=== PATIENT | male | born 1945 | race Caucasian/White ===

== ENCOUNTER → 2018-06-14 | Outpatient (REF) | payer MEDICARE, OTHER ==
[2018-06-14 18:04] LABS: BASO # 0.1 10^3/uL (0.0-0.2); BASO % 0.4 % (0.0-1.0); EOS # 0.1 10^3/uL (0.0-0.50); EOS % 0.9 % (0.0-3.0); HEMATOCRIT 36.3 % (42.0-52.0); HEMOGLOBIN 11.7 g/dl (13.5-17.5); IMMATURE GRANULOCYTE % 3.1 % (0-3.0); LYMPH # 1.4 10^3/uL (1.5-4.5); LYMPH % 8.4 % (24.0-44.0); MEAN CORPUSCULAR HGB CONC 32.2 g/dl (32.0-36.5); MEAN CORPUSCULAR VOLUME 83.8 fl (80.0-96.0); MONO # 0.9 10^3/uL (0.0-0.8); MONO % 5.7 % (0.0-5.0); NEUTROPHILS # 13.2 10^3/uL (1.8-7.7); NEUTROPHILS % 81.5 % (36.0-66.0); PLATELET COUNT, AUTOMATED 582 10^3/uL (150-450); RED BLOOD COUNT 4.33 10^6/uL (4.30-6.10); RED CELL DISTRIBUTION WIDTH 14.5 % (11.5-14.5); WHITE BLOOD COUNT 16.1 10^3/uL (4.0-10.0)
[2018-06-14 18:24] LABS: ALBUMIN 2.4 GM/DL (3.2-5.2); ALBUMIN/GLOBULIN RATIO 0.53 (1.00-1.93); ALKALINE PHOSPHATASE 85 U/L (45-117); ALT/SGPT 26 U/L (12-78); ANION GAP 10 MEQ/L (8-16); AST/SGOT 13 U/L (7-37); BILIRUBIN,TOTAL 0.2 MG/DL (0.2-1.0); BLOOD UREA NITROGEN 11 MG/DL (7-18); CALCIUM LEVEL 8.5 MG/DL (8.8-10.2); CARBON DIOXIDE LEVEL 29 MEQ/L (21-32); CHLORIDE LEVEL 100 MEQ/L (98-107); CREATININE FOR GFR 0.92 MG/DL (0.70-1.30); GLOMERULAR FILTRATION RATE > 60.0 (>42); GLUCOSE, FASTING 108 MG/DL (70-100); LDH LACTATE DEHYDROGENASE 142 U/L (87-241); POTASSIUM SERUM 4.6 MEQ/L (3.5-5.1); SODIUM LEVEL 139 MEQ/L (136-145); TOTAL PROTEIN 6.9 GM/DL (6.4-8.2)
[2018-06-14 18:33] LABS: INR 1.08; PROTHROMBIN TIME 14.1 SECONDS (12.1-14.4)
[2018-06-14 18:34] LABS: PARTIAL THROMBOPLASTIN TIME 28.2 SECONDS (25.4-37.6)
== END ==
LOC: M LAB REF 17:26
DX: J90 Pleural effusion, not elsewhere classified (principal)
CPT/HCPCS: 83615

== ENCOUNTER 2018-06-16 12:32 | Day surgery (SDC) | payer MEDICARE, OTHER ==
[2018-06-16] MEDS ORDERED: LIDOCAINE 1% MDV 20ML VIAL As Ordered (14:01)
[2018-06-16 14:58] LABS: PH BODY FLUID 7.119 UNITS (NOT ESTABLISHED); SOURCE, BODY FLUID pH THORACENTES
[2018-06-16 15:15] LABS: APPEARANCE, BODY FLUID HAZY (CLEAR); PLEURAL FL COLOR RED (COLORLESS); SOURCE, BODY FLUID PLEURAL
[2018-06-16 15:16] LABS: BF DIFF IF INDICATED? YES (NO); BF MONONUCLEAR CELL % 6.9 % (0-0); BF POLYMORPHONUCLEAR CELL % 93.1 % (0-0); RBC BODY FLUID 50 10^3/uL (<2); WBC BODY FLUID 2950 /uL (0-10)
[2018-06-16 15:55] LABS: LDH, BODY FLUID 2598 U/L (NOT ESTABLISHED); SOURCE, BODY FLUID LDH THORACENTESIS; SOURCE, BODY FLUID TOT PROTEIN THORACENTESIS; TOTAL PROTEIN, BODY FLUID 4.9 G/DL (NOT ESTABLISHED)
[2018-06-16 18:34] LABS: SOURCE, BODY FLUID GLUCOSE THORACENTESIS
== END 2018-06-16 15:21 | disposition home or self-care (01) ==
LOC: M OPP 12:32
DX: J90 Pleural effusion, not elsewhere classified (principal); J18.9 Pneumonia, unspecified organism; I10 Essential (primary) hypertension; J44.9 Chronic obstructive pulmonary disease, unspecified; Z86.69 Personal history of other diseases of the nervous system and sense organs; Z79.899 Other long term (current) drug therapy; Z79.84 Long term (current) use of oral hypoglycemic drugs; Z87.891 Personal history of nicotine dependence
CPT/HCPCS: 32555

== ENCOUNTER 2020-04-25 12:07 | Day surgery (SDC) | payer MEDICARE, OTHER ==
[~2020-04-25] VITALS: Ht 177.8 cm; Wt 85.9 kg
[~2020-04-25 12:07] MED LIST: ADV250INH INH; ALBU83IN INH; ASPI81TA52 PO; B-12100010 PO; BENA40TA5 PO; DOXA8TAB2 PO; FERR32TA PO; FLOM0.4C39 PO; GLIP5TAB20 PO; JANU100T PO; METF10004 PO; MUCI600T31 PO; MULT1TAB10 PO; PANT40TA29 PO; RANI150T PO; SIMV40TA20 PO; VITA100067 PO; ZETI10TA16 PO
[2020-04-25] MEDS ORDERED: NS 1,000 ML IV ONE (12:15)
[2020-04-25] MEDS ORDERED: propofoL 200 MG/20 ML VIAL As Ordered ONE (12:44)
[2020-04-25 13:21] VITALS: BP 127/72
--- NOTE | 2020-05-16 11:29 | ROOR ---
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 Procedure: Pre-Anesthesia Assessment: - The heart rate, respiratory rate, oxygen saturations, blood pressure, adequacy of pulmonary ventilation, and response to care were monitored throughout the procedure. The Colonoscope was introduced through the anus and advanced to the cecum, identified by appendiceal orifice and ileocecal valve. The colonoscopy was performed without difficulty. The patient tolerated the procedure well. The quality of the bowel preparation was excellent. Findings: The perianal and digital rectal examinations were normal. Non-bleeding internal hemorrhoids were found during retroflexion. The hemorrhoids were small and Grade I (internal hemorrhoids that do not prolapse). Scattered small-mouthed diverticula were found in the recto-sigmoid colon, sigmoid colon and descending colon. A small polyp was found at 20 cm proximal to the anus. The polyp was sessile. The polyp was removed with a cold snare. Resection and retrieval were complete. To prevent bleeding after the polypectomy, three hemostatic clips were successfully placed (MR conditional). There was no bleeding at the end of the procedure. The exam was otherwise without abnormality on direct and retroflexion views. Impression: - Non-bleeding internal hemorrhoids. - Diverticulosis in the recto-sigmoid colon, in the sigmoid colon and in the descending colon. - One small polyp at 20 cm proximal to the anus, removed with a cold snare. Resected and retrieved. Clips (MR conditional) were placed. - The examination was otherwise normal on direct and retroflexion views. - The exam was otherwise normal to the cecum. Recommendation: - Patient has a contact number available for emergencies. The signs and symptoms of potential delayed complications were discussed with the patient. Return to normal activities tomorrow. Written discharge instructions were provided to the patient. - High fiber diet. - Discharge patient to home. - Continue present medications. - Await pathology results. - Telephone GI clinic for pathology results in 1 week. - Repeat colonoscopy for symptoms only. - Return to referring physician. - The findings and recommendations were discussed with the patient. Mehran Mayes MD Mehran Mayes MD 04/25/2020 12:52:39 PM Electronically signed by Mehran Mayes MD Number of Addenda: 0 Note Initiated On: 04/25/2020 11:07 AM Estimated Blood Loss: Estimated blood loss: none.
== END 2020-04-25 13:23 | disposition home or self-care (01) ==
LOC: M OPP 12:07
PROVIDERS: ATTEND Internal Medicine Gastroenterology
DX: Z12.11 Encounter for screening for malignant neoplasm of colon (principal); K64.0 First degree hemorrhoids; D12.6 Benign neoplasm of colon, unspecified; K57.30 Diverticulosis of large intestine without perforation or abscess without bleeding; K21.9 Gastro-esophageal reflux disease without esophagitis; E11.9 Type 2 diabetes mellitus without complications; I10 Essential (primary) hypertension; Z79.82 Long term (current) use of aspirin; Z79.84 Long term (current) use of oral hypoglycemic drugs; Z79.899 Other long term (current) drug therapy; Z87.891 Personal history of nicotine dependence

== ENCOUNTER → 2023-05-13 | Outpatient (CLI) | payer MEDICARE, OTHER ==
[~2023-05-13] MED LIST changes: +ALBU2.5V10 INH; -ALBU83IN INH; -BENA40TA5 PO; +BENA40TA84 PO; -DOXA8TAB2 PO; +DOXA8TAB65 PO; +EZET10TA58 PO; -ZETI10TA16 PO
== END ==
LOC: M CARPUL 10:41
PROVIDERS: ATTEND Internal Medicine Cardiovascular Disease
DX: R94.31 Abnormal electrocardiogram [ECG] [EKG] (principal); I10 Essential (primary) hypertension; I31.39 Other pericardial effusion (noninflammatory); R93.1 Abnormal findings on diagnostic imaging of heart and coronary circulation; I08.1 Rheumatic disorders of both mitral and tricuspid valves